=== PATIENT | male | born 1940 | race Caucasian/White ===

== ENCOUNTER 2017-11-19 10:49 | Inpatient (IN) | payer MEDICARE ==
[2017-11-19] VITALS (7 sets, daily range): BP systolic 111–196; BP diastolic 48–85
[~2017-11-19] VITALS: Ht 162.6 cm; Wt 67.7 kg
[2017-11-19] MEDS ORDERED: ondansetron/PF 4mg/2ml inj IV ONE (10:55)
[2017-11-19] MEDS ORDERED: normal saline 1000ML IV soln IVB ONE (10:55)
[2017-11-19] MEDS ORDERED: morphine 4 MG/ML inj SYRINge IV ONE ×3 (11:10→11:55)
[2017-11-19 11:26] LABS: BASOPHILS % (AUTO) 0.6 % (0-1); EOSINOPHILS # (AUTO) 0.1 X10'3 (0-0.9); EOSINOPHILS % (AUTO) 1.9 % (0-6); HEMATOCRIT 43.9 % (42.0-52.0); HEMOGLOBIN 14.9 g/dl (14.0-17.9); LYMPHOCYTES # (AUTO) 1.3 X10'3 (1.1-4.8); LYMPHOCYTES % (AUTO) 25.3 % (21-51); MEAN CORPUSCULAR HEMOGLOBIN 31.5 PG (27.0-31.0); MEAN CORPUSCULAR HGB CONC 33.8 % (33.0-36.5); MEAN CORPUSCULAR VOLUME 93.1 FL (78-98); MEAN PLATELET VOLUME 7.7 FL (7.4-10.4); MONOCYTES # (AUTO) 0.5 X10'3 (0-0.9); MONOCYTES % (AUTO) 10.1 % (2-12); NEUTROPHILS # (AUTO) 3.2 X10'3 (1.8-7.7); NEUTROPHILS % (AUTO) 62.1 % (42-75); PLATELET COUNT 271 X10'3 (140-440); RED BLOOD COUNT 4.72 X10'6 (4.70-6.10); RED CELL DISTRIBUTION WIDTH 13.4 % (11.5-14.5); WHITE BLOOD COUNT 5.2 X10'3 (4.5-11.0)
--- NOTE | 2017-11-19 11:30 | NUR ---
Patient states that he does not have to urinate at this time.
[2017-11-19 11:39] LABS: ALANINE AMINOTRANSFERASE 39 U/L (12-78); ALBUMIN 3.9 G/DL (3.4-5.0); ALBUMIN/GLOBULIN RATIO 1.3 (1.1-1.5); ALKALINE PHOSPHATASE 61 IU/L (46-116); ANION GAP 9 (8-16); ASPARTATE AMINO TRANSFERASE 24 U/L (10-37); BILIRUBIN,TOTAL 0.6 MG/DL (0.1-1.0); BLOOD UREA NITROGEN 23 MG/DL (7-18); CALCIUM 9.1 MG/DL (8.5-10.1); CHLORIDE 95 MMOL/L (99-107); GLUCOSE 177 MG/DL (70-104); LIPASE 265 U/L (73-393); POTASSIUM 3.6 MMOL/L (3.5-5.1); SODIUM 135 MMOL/L (135-145); TOTAL CARBON DIOXIDE 31.4 MMOL/L (24-32); TOTAL PROTEIN 6.9 G/DL (6.4-8.2); eGFR 72 ML/MIN
--- NOTE | 2017-11-19 11:48 | NUR ---
Patient states that he still does not have to urinate at this time.
[2017-11-19] MEDS ORDERED: iohexol 350MG/ML 100ml bottle IV ONE (12:02)
--- NOTE | 2017-11-19 12:05 | NUR ---
PATIENT LEAVING FOR CT AT THIS TIME.
--- NOTE | 2017-11-19 12:27 | NUR ---
BACK FROM CT SCAN
[2017-11-19 12:54] LABS: CLARITY,URINE SLIGHTLY CLOUDY (Clear); COLOR,URINE STRAW (Yellow); GLUCOSE, URINE NEGATIVE (Neg); KETONES,URINE 15 mg/dl (Neg); LEUKOCYTE ESTERASE ,URINE NEGATIVE (Neg); NITRITES, URINE NEGATIVE (Neg); OCCULT BLOOD,URINE NEGATIVE (Neg); PROTEIN,URINE NEGATIVE (Neg); UROBILINOGEN,URINE 0.2 E.U/dL (0.2-1.0)
[2017-11-19] MEDS ORDERED: heparin 25,000 UNIT/250ml bag 250 ML IV SCH ×3 (12:55→14:32)
[2017-11-19] MEDS ORDERED: heparin 10,000 units/1 ML INJ IV ONE (12:55)
[2017-11-19] MEDS ORDERED: heparin 10,000 units/1 ML INJ IV PRN ×2 (13:05→14:20)
[2017-11-19 13:06] LABS: UA COLLECTION TYPE URINAL
[2017-11-19 13:07] LABS: AMORPHOUS PHOSPHATES 3+; BACTERIA,URINE NONE SEEN /HPF (Neg); MUCUS STRANDS NONE SEEN /LPF (Neg); RBC,URINE 0-2 /HPF (0-2); SQUAMOUS EPITHELIAL CELL,UR NONE SEEN /LPF (FEW); WBC,URINE 0-4 /HPF (0-4)
[2017-11-19 13:17] LABS: PARTIAL THROMBOPLASTIN TIME 25 SECONDS (22-32); PROTHROMBIN TIME 10.8 SECONDS (9.0-12.0)
--- NOTE | 2017-11-19 14:14 | NUR ---
Patient having vascular study done at this time
[2017-11-19] MEDS ORDERED: ondansetron/PF 4mg/2ml inj IV PRN (14:20)
[2017-11-19] MEDS ORDERED: dextrose ORAL solution 15 GM/59 ML bottle PO PRN ×2 (14:20)
[2017-11-19] MEDS ORDERED: morphine 2 MG/ML inj. syringe IV PRN ×2 (14:20→20:35)
[2017-11-19] MEDS ORDERED: potassium Cl 20 mEq SR tablet PO PRN (14:20)
[2017-11-19] MEDS ORDERED: insulin Lispro (HumaLOG) vial - multi-dose SQ SCH (14:20)
[2017-11-19] MEDS ORDERED: MESSAGE TO PHARMACY PO ONE (14:20)
[2017-11-19] MEDS ORDERED: dextrose 50%-water 50ml dispensing syringe IV PRN ×2 (14:20)
[2017-11-19] MEDS ORDERED: glucagon, human recombinant 1mg kit SUBCUT PRN (14:20)
[2017-11-19] MEDS ORDERED: acetaminophen 325mg tablet PO PRN ×2 (14:20)
[2017-11-19] MEDS ORDERED: potassium Cl 40MEQ/NS 500ml 500 ML IV PRN ×2 (14:20)
[2017-11-19] MEDS ORDERED: magnesium hydroxide 30ml (MOM) UD suspension PO PRN (14:20)
[2017-11-19 14:50] LABS: HEMOGLOBIN A1C 5.3 % (4.5-6.2)
--- NOTE | 2017-11-19 15:00 | NUR ---
Patient in room CICU 2009. I have received report from Candice and had the opportunity to ask questions and assume patient care.
[2017-11-19] MEDS ORDERED: LISI40TA4 PO (15:12)
[2017-11-19] MEDS ORDERED: CHLO25TA10 PO (15:12)
[2017-11-19] MEDS ORDERED: METF-950 PO (15:14)
[2017-11-19] MEDS ORDERED: ATOR-2 PO (15:14)
[2017-11-19] MEDS ORDERED: AMLO10TA13 PO (15:14)
[2017-11-19] MEDS ORDERED: ATEN25TA2 PO (15:14)
[2017-11-19] MEDS ORDERED: OMEG-15 PO (15:22)
[2017-11-19] MEDS ORDERED: UBID100C16 PO (15:22)
[2017-11-19] MEDS ORDERED: VITA1TAB57 PO (15:22)
[2017-11-19] MEDS ORDERED: CHOL100046 PO (15:22)
[2017-11-19] MEDS ORDERED: MULT-933 PO (15:22)
[2017-11-19] MEDS ORDERED: ASPI-611 PO (15:22)
[2017-11-19] MEDS ORDERED: MELA5TAB12 PO (15:25)
[2017-11-19] MEDS ORDERED: amLODIPine 5mg tablet PO ONE (15:55)
[2017-11-19] MEDS ORDERED: vitamin D (cholecalciferol) 1,000 unit tablet PO ONE (15:55)
[2017-11-19] MEDS ORDERED: atenolol 25mg tablet PO ONE (15:55)
[2017-11-19] MEDS ORDERED: lisinopril 20mg tablet PO ONE (15:55)
[2017-11-19] MEDS ORDERED: famotidine 20mg tablet PO ONE (15:55)
[2017-11-19] MEDS ORDERED: aspirin 81mg tab.chew PO ONE (15:55)
[2017-11-19] MEDS ORDERED: chlorthalidone 25mg tablet PO ONE (15:55)
[2017-11-19] MEDS: morphine 4 MG/ML inj SYRINge IV PRN ×4 (16:10→23:21)
[2017-11-19] MEDS: vitamin B comp w/Vit. C tab 1 TAB TABLET PO SCH (16:16)
[2017-11-19] MEDS: heparin 25,000 UNIT/250ml bag 250 ML IV SCH ×2 (16:16→23:17)
[2017-11-19] MEDS: vitamin D (cholecalciferol) 1,000 unit tablet PO SCH (16:20)
--- NOTE | 2017-11-19 19:08 | NUR ---
1515- Pt arrived from ER via zeinab S.O at bedside. A/O able to transfer to bed with standby. VS stable, BP elevated at196/83. Pt has not received AM meds today. Dr Ramos here completing admission. Pain in abdomen controlled at this time. Pt describes pain at lower abdomen wraps around, "axis to axis", sharp continuous. Admission completed as charted.
[2017-11-19] MEDS ORDERED: non-formulary drug (Ubidecarenone (Coq-10) 100 MG) PO SCH (20:00)
[2017-11-19] MEDS: atorvastatin 20mg tablet PO SCH (20:40)
[2017-11-19] MEDS: HYDROcodone/acetaminophen 5mg/325mg tablet PO PRN (20:41)
[2017-11-19] MEDS: famotidine 20mg tablet PO SCH (20:41)
[2017-11-19] MEDS: insulin glargine (Lantus) pen - multi-dose SQ SCH (20:42)
[2017-11-19] MEDS: lisinopril 20mg tablet PO SCH (20:42)
[2017-11-19] MEDS ORDERED: FISH OIL PO SCH (21:00)
[2017-11-19] MEDS ORDERED: DHA PO SCH (21:00)
[2017-11-19] MEDS ORDERED: OMEGA PO SCH (21:00)
[2017-11-19] MEDS ORDERED: EPA PO SCH (21:00)
[2017-11-20] VITALS (21 sets, daily range): BP systolic 131–181; BP diastolic 63–90
[2017-11-20] MEDS: HYDROcodone/acetaminophen 5mg/325mg tablet PO PRN (02:14)
[2017-11-20 04:49] LABS: BASOPHILS % (AUTO) 0.2 % (0-1); EOSINOPHILS # (AUTO) 0.1 X10'3 (0-0.9); EOSINOPHILS % (AUTO) 0.9 % (0-6); HEMATOCRIT 38.2 % (42.0-52.0); HEMOGLOBIN 12.8 g/dl (14.0-17.9); LYMPHOCYTES # (AUTO) 0.9 X10'3 (1.1-4.8); LYMPHOCYTES % (AUTO) 13.3 % (21-51); MEAN CORPUSCULAR HEMOGLOBIN 31.2 PG (27.0-31.0); MEAN CORPUSCULAR HGB CONC 33.5 % (33.0-36.5); MEAN CORPUSCULAR VOLUME 93.3 FL (78-98); MEAN PLATELET VOLUME 7.9 FL (7.4-10.4); MONOCYTES # (AUTO) 0.6 X10'3 (0-0.9); MONOCYTES % (AUTO) 8.7 % (2-12); NEUTROPHILS # (AUTO) 5.1 X10'3 (1.8-7.7); NEUTROPHILS % (AUTO) 76.9 % (42-75); PLATELET COUNT 216 X10'3 (140-440); RED CELL DISTRIBUTION WIDTH 13.6 % (11.5-14.5); WHITE BLOOD COUNT 6.6 X10'3 (4.5-11.0)
[2017-11-20 05:13] LABS: ALANINE AMINOTRANSFERASE 28 U/L (12-78); ALBUMIN 3.1 G/DL (3.4-5.0); ALBUMIN/GLOBULIN RATIO 1.1 (1.1-1.5); ALKALINE PHOSPHATASE 47 IU/L (46-116); ANION GAP 5 (8-16); ASPARTATE AMINO TRANSFERASE 16 U/L (10-37); BILIRUBIN,TOTAL 0.4 MG/DL (0.1-1.0); BLOOD UREA NITROGEN 15 MG/DL (7-18); BUN/CREATININE RATIO 16.3 (5.4-32.0); CALCIUM 8.7 MG/DL (8.5-10.1); CHLORIDE 99 MMOL/L (99-107); CREATININE 0.92 MG/DL (0.60-1.10); GLUCOSE 136 MG/DL (70-104); MAGNESIUM 1.5 MG/DL (1.5-2.4); PHOSPHORUS 4.9 MG/DL (2.3-4.5); POTASSIUM 3.5 MMOL/L (3.5-5.1); SODIUM 134 MMOL/L (135-145); TOTAL CARBON DIOXIDE 30.2 MMOL/L (24-32); TOTAL PROTEIN 5.8 G/DL (6.4-8.2); eGFR 80 ML/MIN
--- NOTE | 2017-11-20 06:30 | NUR ---
Patient in room CICU 2008. I have received report from frank mcrae and had the opportunity to ask questions and assume patient care.
[2017-11-20] MEDS: morphine 4 MG/ML inj SYRINge IV PRN (07:06)
[2017-11-20] MEDS: K and/or MAG REPLACEMENT MC SCH (08:00)
[2017-11-20] MEDS: aspirin 81mg tab.chew PO SCH (08:33)
[2017-11-20] MEDS: chlorthalidone 25mg tablet PO SCH (08:34)
[2017-11-20] MEDS: amLODIPine 5mg tablet PO SCH (08:35)
[2017-11-20] MEDS: famotidine 20mg tablet PO SCH (08:37)
[2017-11-20] MEDS: atenolol 25mg tablet PO SCH (08:37)
[2017-11-20] MEDS: multivitamins, therapeutics tablet PO SCH (08:37)
[2017-11-20] MEDS: vitamin D (cholecalciferol) 1,000 unit tablet PO SCH (08:38)
[2017-11-20] MEDS: lisinopril 20mg tablet PO SCH ×2 (08:39→21:21)
[2017-11-20] MEDS ORDERED: dicyclomine 10 MG capsule PO PRN (17:55)
--- NOTE | 2017-11-20 18:22 | NUR ---
Problems reprioritized. Patient report given, questions answered & plan of care reviewed with ALEK MOSLEY..
--- NOTE | 2017-11-20 18:39 | NUR ---
I have received report and assumed care of pt, pt resting in bed, rise and fall of chest cavity equile and symmetrical, pt eating dinner without difficulties orders in place to transfer pt to [facility] without tele.
--- NOTE | 2017-11-20 19:41 | NUR ---
report called to receiving rn care of plan reviewed, pt and belongings transferred to [facility] via wheel chair.
--- NOTE | 2017-11-20 20:10 | NUR ---
I have received report from MELANY IN CICU and had the opportunity to ask questions and assume patient care. Two RN Skin Assessment has been completed at 2009 with CRISTY RN,all skin assessed,with the following findingS: NO SKIN ISSUES
[2017-11-20] MEDS: insulin glargine (Lantus) pen - multi-dose SQ SCH (21:00)
[2017-11-20] MEDS: amitriptyline 10mg tablet PO SCH (21:00)
[2017-11-20] MEDS: atorvastatin 20mg tablet PO SCH (21:21)
--- NOTE | 2017-11-20 22:00 | NUR ---
PT REFUSING TO HAVE IV IN PLACE. EXPLAINED TO PT THAT IV IS IN PLACE A SAFETY PRECAUTION, PT CONTINUES TO REFUSE IV. IV DC'D WITH CANNULA INTACT.
[2017-11-21] VITALS: BP 171/69
[2017-11-21 05:24] LABS: BASOPHILS % (AUTO) 0.4 % (0-1); EOSINOPHILS # (AUTO) 0.1 X10'3 (0-0.9); HEMATOCRIT 39.3 % (42.0-52.0); HEMOGLOBIN 13.2 g/dl (14.0-17.9); LYMPHOCYTES % (AUTO) 16.5 % (21-51); MEAN CORPUSCULAR HEMOGLOBIN 31.2 PG (27.0-31.0); MEAN CORPUSCULAR HGB CONC 33.6 % (33.0-36.5); MEAN PLATELET VOLUME 7.9 FL (7.4-10.4); MONOCYTES # (AUTO) 0.6 X10'3 (0-0.9); MONOCYTES % (AUTO) 10.8 % (2-12); NEUTROPHILS # (AUTO) 4.1 X10'3 (1.8-7.7); NEUTROPHILS % (AUTO) 70.3 % (42-75); PLATELET COUNT 213 X10'3 (140-440); RED BLOOD COUNT 4.23 X10'6 (4.70-6.10); RED CELL DISTRIBUTION WIDTH 13.4 % (11.5-14.5); WHITE BLOOD COUNT 5.9 X10'3 (4.5-11.0)
[2017-11-21 05:55] LABS: ALANINE AMINOTRANSFERASE 28 U/L (12-78); ALBUMIN 3.3 G/DL (3.4-5.0); ALBUMIN/GLOBULIN RATIO 1.2 (1.1-1.5); ALKALINE PHOSPHATASE 49 IU/L (46-116); ANION GAP 5 (8-16); ASPARTATE AMINO TRANSFERASE 17 U/L (10-37); BILIRUBIN,TOTAL 0.4 MG/DL (0.1-1.0); BLOOD UREA NITROGEN 15 MG/DL (7-18); BUN/CREATININE RATIO 14.2 (5.4-32.0); CALCIUM 8.6 MG/DL (8.5-10.1); CHLORIDE 101 MMOL/L (99-107); CREATININE 1.06 MG/DL (0.60-1.10); GLUCOSE 127 MG/DL (70-104); MAGNESIUM 1.6 MG/DL (1.5-2.4); PHOSPHORUS 3.9 MG/DL (2.3-4.5); POTASSIUM 3.4 MMOL/L (3.5-5.1); SODIUM 139 MMOL/L (135-145); TOTAL PROTEIN 6.1 G/DL (6.4-8.2); eGFR 68 ML/MIN
--- NOTE | 2017-11-21 06:37 | NUR ---
Problems reprioritized. Patient report given, questions answered & plan of care reviewed with COLTON.
--- NOTE | 2017-11-21 06:40 | NUR ---
Patient in room [facility] 354. I have received report from ALEK Coles and had the opportunity to ask questions and assume patient care.
[2017-11-21 07:18] VITALS: BP 111/64
[2017-11-21] MEDS: multivitamins, therapeutics tablet PO SCH (07:46)
[2017-11-21] MEDS: lisinopril 20mg tablet PO SCH ×2 (07:46→21:01)
[2017-11-21] MEDS: aspirin 81mg tab.chew PO SCH (07:46)
[2017-11-21] MEDS: amLODIPine 5mg tablet PO SCH (07:46)
[2017-11-21] MEDS: vitamin B comp w/Vit. C tab 1 TAB TABLET PO SCH (07:46)
[2017-11-21] MEDS: vitamin D (cholecalciferol) 1,000 unit tablet PO SCH (07:46)
[2017-11-21] MEDS: chlorthalidone 25mg tablet PO SCH (07:47)
[2017-11-21] MEDS: atenolol 25mg tablet PO SCH (07:47)
[2017-11-21] MEDS: K and/or MAG REPLACEMENT MC SCH (08:00)
[2017-11-21 11:37] VITALS: BP 114/64
[2017-11-21] MEDS: potassium Cl 20 mEq SR tablet PO PRN ×3 (14:00→21:55)
--- NOTE | 2017-11-21 18:20 | NUR ---
Patient in room [facility] 354. I have received report from Yasmin GASTON and had the opportunity to ask questions and assume patient care.
--- NOTE | 2017-11-21 19:16 | NUR ---
Patient in room [facility] 354. I have received report from Yasmin GASTON and had the opportunity to ask questions and assume patient care.
[2017-11-21 20:00] VITALS: BP 144/68
[2017-11-21] MEDS: atorvastatin 20mg tablet PO SCH (21:00)
[2017-11-21] MEDS: insulin glargine (Lantus) pen - multi-dose SQ SCH (21:00)
[2017-11-21] MEDS: amitriptyline 10mg tablet PO SCH (21:00)
[2017-11-21 23:51] VITALS: BP 144/75
[2017-11-22 05:53] LABS: BASOPHILS % (AUTO) 0.3 % (0-1); EOSINOPHILS # (AUTO) 0.2 X10'3 (0-0.9); HEMATOCRIT 41.5 % (42.0-52.0); HEMOGLOBIN 14.2 g/dl (14.0-17.9); LYMPHOCYTES # (AUTO) 1.2 X10'3 (1.1-4.8); LYMPHOCYTES % (AUTO) 22.7 % (21-51); MEAN CORPUSCULAR HEMOGLOBIN 31.7 PG (27.0-31.0); MEAN CORPUSCULAR HGB CONC 34.1 % (33.0-36.5); MEAN CORPUSCULAR VOLUME 92.8 FL (78-98); MEAN PLATELET VOLUME 7.7 FL (7.4-10.4); MONOCYTES # (AUTO) 0.5 X10'3 (0-0.9); MONOCYTES % (AUTO) 9.4 % (2-12); NEUTROPHILS # (AUTO) 3.5 X10'3 (1.8-7.7); NEUTROPHILS % (AUTO) 64.6 % (42-75); PLATELET COUNT 220 X10'3 (140-440); RED BLOOD COUNT 4.47 X10'6 (4.70-6.10); RED CELL DISTRIBUTION WIDTH 13.3 % (11.5-14.5); WHITE BLOOD COUNT 5.4 X10'3 (4.5-11.0)
[2017-11-22 06:14] LABS: ALANINE AMINOTRANSFERASE 31 U/L (12-78); ALBUMIN 3.3 G/DL (3.4-5.0); ALBUMIN/GLOBULIN RATIO 1.1 (1.1-1.5); ALKALINE PHOSPHATASE 53 IU/L (46-116); ANION GAP 7 (8-16); ASPARTATE AMINO TRANSFERASE 17 U/L (10-37); BILIRUBIN,TOTAL 0.6 MG/DL (0.1-1.0); BLOOD UREA NITROGEN 17 MG/DL (7-18); BUN/CREATININE RATIO 19.3 (5.4-32.0); CALCIUM 8.6 MG/DL (8.5-10.1); CHLORIDE 100 MMOL/L (99-107); CREATININE 0.88 MG/DL (0.60-1.10); GLUCOSE 115 MG/DL (70-104); MAGNESIUM 1.7 MG/DL (1.5-2.4); PHOSPHORUS 3.3 MG/DL (2.3-4.5); POTASSIUM 3.9 MMOL/L (3.5-5.1); SODIUM 136 MMOL/L (135-145); TOTAL PROTEIN 6.4 G/DL (6.4-8.2); eGFR 84 ML/MIN
--- NOTE | 2017-11-22 06:22 | NUR ---
Problems reprioritized. Patient report given, questions answered & plan of care reviewed with Yasmin GASTON with Ellie GASTON.
--- NOTE | 2017-11-22 06:27 | NUR ---
Patient in room [facility] 354. I have received report from ALEK Mohamud and jasson Argueta RN and had the opportunity to ask questions and assume patient care.
--- NOTE | 2017-11-22 06:30 | NUR ---
Problems reprioritized. Patient report given, questions answered & plan of care reviewed with Yasmin GASTON. Pt sleeping soundly with no signs of distress.
[2017-11-22 07:45] VITALS: BP 130/68
[2017-11-22] MEDS: chlorthalidone 25mg tablet PO SCH (07:56)
[2017-11-22] MEDS: atenolol 25mg tablet PO SCH (07:56)
[2017-11-22] MEDS: vitamin D (cholecalciferol) 1,000 unit tablet PO SCH (07:56)
[2017-11-22] MEDS: vitamin B comp w/Vit. C tab 1 TAB TABLET PO SCH (07:56)
[2017-11-22] MEDS: amLODIPine 5mg tablet PO SCH (07:56)
[2017-11-22] MEDS: aspirin 81mg tab.chew PO SCH (07:56)
[2017-11-22] MEDS: multivitamins, therapeutics tablet PO SCH (07:56)
[2017-11-22] MEDS: lisinopril 20mg tablet PO SCH (07:56)
[2017-11-22] MEDS: K and/or MAG REPLACEMENT MC SCH (08:00)
[2017-11-22 11:00] VITALS: BP 134/73
--- NOTE | 2017-11-22 15:00 | NUR ---
Pt discharged to home with all belongings in private vehicle, accompanied by girlfriend. Discharge instructions reviewed, mediations reviewed, no IV to DC. Pt escorted to front lobby by PCT.
== END 2017-11-22 14:30 | disposition home or self-care (01) | DRG 394 ==
LOC: ER 10:50 → ED HOLD 14:20 → CICU 2S 15:03 → SUR 3N 11-20 20:03
PROVIDERS: ADMIT Internal Medicine Critical Care Medicine; ATTEND Internal Medicine Critical Care Medicine
PROC: B4201ZZ Computerized Tomography (CT Scan) of Abdominal Aorta using Low Osmolar Contrast (ICD-10-PCS; principal; 2017-11-19)
PROC: B4241ZZ Computerized Tomography (CT Scan) of Superior Mesenteric Artery using Low Osmolar Contrast (ICD-10-PCS; 2017-11-19)
PROC: B3201ZZ Computerized Tomography (CT Scan) of Thoracic Aorta using Low Osmolar Contrast (ICD-10-PCS; 2017-11-19)
DX: K55.059 Acute (reversible) ischemia of intestine, part and extent unspecified (principal); E87.2 Acidosis; K55.1 Chronic vascular disorders of intestine; I25.10 Atherosclerotic heart disease of native coronary artery without angina pectoris; I10 Essential (primary) hypertension; R73.03 Prediabetes; Z95.1 Presence of aortocoronary bypass graft; Z88.0 Allergy status to penicillin; Z87.891 Personal history of nicotine dependence
CPT/HCPCS: 36415; 71275; 74175; 80053; 81001; 82948; 83036; 83605; 83690; 83735; 84100; 84145; 85025; 85610; 85730; 86885; 86900; 86901; 87070; 93005; 93306; 93975; 96365; 96375; 96376; 99291; G0378; J1644; J1815; J2270; J2405; Q9967

== ENCOUNTER 2017-11-24 13:00 | Observation (INO) | payer MEDICARE ==
[~2017-11-24] VITALS: Ht 162.6 cm; Wt 66.8 kg
[~2017-11-24 13:00] MED LIST: AMLO10TA13 PO; ASPI-611 PO; ATEN25TA2 PO; ATOR-2 PO; CHLO25TA10 PO; CHOL100046 PO; LISI40TA4 PO; MELA5TAB12 PO; METF-950 PO; MULT-933 PO; OMEG-15 PO; UBID100C16 PO; VITA1TAB57 PO
[2017-11-24 13:50] LABS: BASOPHILS % (AUTO) 0.2 % (0-1); EOSINOPHILS # (AUTO) 0.1 X10'3 (0-0.9); EOSINOPHILS % (AUTO) 1.3 % (0-6); HEMATOCRIT 40.4 % (42.0-52.0); HEMOGLOBIN 13.7 g/dl (14.0-17.9); LYMPHOCYTES # (AUTO) 0.8 X10'3 (1.1-4.8); LYMPHOCYTES % (AUTO) 17.5 % (21-51); MEAN CORPUSCULAR HEMOGLOBIN 31.6 PG (27.0-31.0); MEAN CORPUSCULAR HGB CONC 33.9 % (33.0-36.5); MEAN CORPUSCULAR VOLUME 93.3 FL (78-98); MEAN PLATELET VOLUME 7.9 FL (7.4-10.4); MONOCYTES # (AUTO) 0.5 X10'3 (0-0.9); MONOCYTES % (AUTO) 11.2 % (2-12); NEUTROPHILS # (AUTO) 3.3 X10'3 (1.8-7.7); NEUTROPHILS % (AUTO) 69.8 % (42-75); PLATELET COUNT 257 X10'3 (140-440); RED BLOOD COUNT 4.34 X10'6 (4.70-6.10); RED CELL DISTRIBUTION WIDTH 13.5 % (11.5-14.5); WHITE BLOOD COUNT 4.8 X10'3 (4.5-11.0)
[2017-11-24 14:07] LABS: ALANINE AMINOTRANSFERASE 42 U/L (12-78); ALBUMIN 3.6 G/DL (3.4-5.0); ALBUMIN/GLOBULIN RATIO 1.2 (1.1-1.5); ALKALINE PHOSPHATASE 57 IU/L (46-116); ANION GAP 6 (8-16); ASPARTATE AMINO TRANSFERASE 21 U/L (10-37); BILIRUBIN,TOTAL 0.5 MG/DL (0.1-1.0); BLOOD UREA NITROGEN 36 MG/DL (7-18); CALCIUM 8.7 MG/DL (8.5-10.1); CHLORIDE 98 MMOL/L (99-107); CREATININE 1.03 MG/DL (0.60-1.10); GLUCOSE 137 MG/DL (70-104); POTASSIUM 3.9 MMOL/L (3.5-5.1); SODIUM 134 MMOL/L (135-145); TOTAL CARBON DIOXIDE 30.1 MMOL/L (24-32); TOTAL PROTEIN 6.7 G/DL (6.4-8.2); eGFR 70 ML/MIN
[2017-11-24 14:23] LABS: PARTIAL THROMBOPLASTIN TIME 26 SECONDS (22-32); PROTHROMBIN TIME 10.3 SECONDS (9.0-12.0)
[2017-11-24] MEDS ORDERED: insulin Lispro (HumaLOG) vial - multi-dose SQ SCH (15:15)
[2017-11-24] MEDS ORDERED: dextrose 50%-water 50ml dispensing syringe IV PRN ×2 (15:15)
[2017-11-24] MEDS ORDERED: ondansetron/PF 4mg/2ml inj IV PRN (15:15)
[2017-11-24] MEDS ORDERED: acetaminophen 325mg tablet PO PRN (15:15)
[2017-11-24] MEDS ORDERED: magnesium hydroxide 30ml (MOM) UD suspension PO PRN (15:15)
[2017-11-24] MEDS ORDERED: morphine 2 MG/ML inj. syringe IV PRN (15:15)
[2017-11-24] MEDS ORDERED: MESSAGE TO PHARMACY PO ONE (15:15)
[2017-11-24] MEDS ORDERED: dextrose ORAL solution 15 GM/59 ML bottle PO PRN ×2 (15:15)
[2017-11-24] MEDS ORDERED: glucagon, human recombinant 1mg kit SUBCUT PRN (15:15)
[2017-11-24] MEDS ORDERED: mag hydrox/Alum hydrox/simeth 30ml oral suspension PO PRN (15:15)
[2017-11-24] MEDS ORDERED: HYDROcodone/acetaminophen 5mg/325mg tablet PO PRN (15:15)
[2017-11-24] MEDS ORDERED: metoprolol tartrate 1mg/ml inj IV PRN (15:25)
[2017-11-24] MEDS ORDERED: nitroGLYCERIN 0.4mg SUBLingual tab SL PRN (15:25)
[2017-11-24] MEDS ORDERED: regadenoson 0.4mg/5ml syringe IV PRN (15:25)
[2017-11-24] MEDS ORDERED: aminophylline 250mg/10ml inj. IV PRN (15:25)
[2017-11-24] MEDS ORDERED: aspirin 325mg tablet PO ONE (15:35)
[2017-11-24] MEDS ORDERED: TUMERIC PO (17:58)
[2017-11-24] MEDS ORDERED: MAGN400C PO (17:58)
[2017-11-24] MEDS ORDERED: Potassium Citrate PO (17:58)
[2017-11-24] MEDS ORDERED: VALE530C PO (17:58)
[2017-11-24] MEDS ORDERED: FLAX100015 PO (17:59)
[2017-11-24 18:08] LABS: HEMOGLOBIN A1C 5.7 % (4.5-6.2)
[2017-11-24] MEDS: metFORMIN 500mg tablet PO SCH (20:00)
[2017-11-24] MEDS ORDERED: non-formulary drug (Ubidecarenone (Coq-10) 100 MG) PO SCH (20:00)
[2017-11-24] MEDS ORDERED: POTASSIUM CITRATE PO SCH (20:00)
[2017-11-24] MEDS ORDERED: non-formulary drug ([Tumeric] 1 TAB) PO SCH (20:00)
[2017-11-24] MEDS ORDERED: OMEGA PO SCH (21:00)
[2017-11-24] MEDS ORDERED: VALERIAN ROOT PO SCH (21:00)
[2017-11-24] MEDS ORDERED: insulin glargine (Lantus) pen - multi-dose SQ SCH (21:00)
[2017-11-24] MEDS ORDERED: EPA PO SCH (21:00)
[2017-11-24] MEDS ORDERED: DHA PO SCH (21:00)
[2017-11-24] MEDS ORDERED: Melatonin 3mg tablet PO SCH (21:00)
[2017-11-24] MEDS ORDERED: FISH OIL PO SCH (21:00)
[2017-11-24 21:50] VITALS: BP 146/66
[2017-11-25] VITALS (18 sets, daily range): BP systolic 101–161; BP diastolic 56–71
[2017-11-25 01:12] LABS: ALANINE AMINOTRANSFERASE 36 U/L (12-78); ALBUMIN 3.2 G/DL (3.4-5.0); ALBUMIN/GLOBULIN RATIO 1.1 (1.1-1.5); ALKALINE PHOSPHATASE 54 IU/L (46-116); ANION GAP 7 (8-16); ASPARTATE AMINO TRANSFERASE 16 U/L (10-37); BILIRUBIN,TOTAL 0.3 MG/DL (0.1-1.0); BLOOD UREA NITROGEN 31 MG/DL (7-18); BUN/CREATININE RATIO 25.8 (5.4-32.0); CALCIUM 8.6 MG/DL (8.5-10.1); CHLORIDE 101 MMOL/L (99-107); GLUCOSE 141 MG/DL (70-104); POTASSIUM 3.4 MMOL/L (3.5-5.1); SODIUM 138 MMOL/L (135-145); TOTAL PROTEIN 6.1 G/DL (6.4-8.2); eGFR 59 ML/MIN
[2017-11-25 01:19] LABS: BASOPHILS % (AUTO) 0.5 % (0-1); EOSINOPHILS # (AUTO) 0.1 X10'3 (0-0.9); EOSINOPHILS % (AUTO) 3.4 % (0-6); HEMOGLOBIN 13.3 g/dl (14.0-17.9); LYMPHOCYTES # (AUTO) 1.1 X10'3 (1.1-4.8); LYMPHOCYTES % (AUTO) 24.3 % (21-51); MEAN CORPUSCULAR HEMOGLOBIN 31.5 PG (27.0-31.0); MEAN CORPUSCULAR HGB CONC 34.2 % (33.0-36.5); MEAN CORPUSCULAR VOLUME 92.1 FL (78-98); MONOCYTES # (AUTO) 0.5 X10'3 (0-0.9); MONOCYTES % (AUTO) 11.8 % (2-12); NEUTROPHILS # (AUTO) 2.6 X10'3 (1.8-7.7); PLATELET COUNT 233 X10'3 (140-440); RED BLOOD COUNT 4.23 X10'6 (4.70-6.10); RED CELL DISTRIBUTION WIDTH 13.4 % (11.5-14.5); WHITE BLOOD COUNT 4.3 X10'3 (4.5-11.0)
[2017-11-25] MEDS ORDERED: lisinopril 20mg tablet PO SCH (08:00)
[2017-11-25] MEDS ORDERED: amLODIPine 5mg tablet PO SCH (08:00)
[2017-11-25] MEDS ORDERED: aspirin 81mg tablet.DR PO SCH (08:00)
[2017-11-25] MEDS ORDERED: chlorthalidone 25mg tablet PO SCH (08:00)
[2017-11-25] MEDS ORDERED: magnesium oxide 400mg tablet PO SCH (08:00)
[2017-11-25] MEDS ORDERED: FLAXSEED OIL 1400 MG PO SCH (08:00)
[2017-11-25] MEDS ORDERED: vitamin B comp w/Vit. C tab 1 TAB TABLET PO SCH (08:00)
[2017-11-25] MEDS ORDERED: enoxaparin 40mg/0.4ml syringe SUBCUT SCH (08:00)
[2017-11-25] MEDS ORDERED: vitamin D (cholecalciferol) 1,000 unit tablet PO SCH (08:00)
[2017-11-25] MEDS ORDERED: atorvastatin 20mg tablet PO SCH (08:00)
[2017-11-25] MEDS ORDERED: multivitamins, therapeutics tablet PO SCH (08:00)
[2017-11-25] MEDS: metFORMIN 500mg tablet PO SCH (08:00)
[2017-11-25] MEDS ORDERED: atenolol 25mg tablet PO SCH (08:00)
[2017-11-25] MEDS ORDERED: potassium Cl 20 mEq SR tablet PO ONE (09:50)
[2017-11-25] MEDS ORDERED: aminophylline inj. 10 ML IV ONE (12:36)
[2017-11-25] MEDS ORDERED: regadenoson 0.4mg/5ml syringe IV ONE (12:36)
== END 2017-11-25 15:45 | disposition home or self-care (01) ==
LOC: ER 13:00 → ED HOLD 15:14 → SUR 3N 21:35
PROVIDERS: ADMIT Internal Medicine; ATTEND Internal Medicine
DX: R07.89 Other chest pain (principal); I25.10 Atherosclerotic heart disease of native coronary artery without angina pectoris; I10 Essential (primary) hypertension; E11.9 Type 2 diabetes mellitus without complications; Z95.1 Presence of aortocoronary bypass graft
CPT/HCPCS: 36415; 71045; 78452; 80053; 82948; 83036; 84484; 85025; 85610; 85730; 93005; 93017; 96372; 96374; 99285; A9500; G0378; J0280; J1650; J1815

== ENCOUNTER 2017-12-13 00:57 | Inpatient (IN) | payer MEDICARE ==
[2017-12-13] VITALS (16 sets, daily range): BP systolic 99–138; BP diastolic 54–72
[~2017-12-13] VITALS: Ht 162.6 cm; Wt 68.1 kg
[~2017-12-13 00:57] MED LIST changes: +FLAX100015 PO; +MAGN400C PO; +Potassium Citrate PO; +TUMERIC PO; +VALE530C PO
[2017-12-13 01:23] LABS: BASOPHILS % (AUTO) 0.7 % (0-1); EOSINOPHILS # (AUTO) 0.1 X10'3 (0-0.9); EOSINOPHILS % (AUTO) 2.2 % (0-6); HEMATOCRIT 41.1 % (42.0-52.0); HEMOGLOBIN 13.8 g/dl (14.0-17.9); LYMPHOCYTES # (AUTO) 1.2 X10'3 (1.1-4.8); LYMPHOCYTES % (AUTO) 21.4 % (21-51); MEAN CORPUSCULAR HEMOGLOBIN 31.7 PG (27.0-31.0); MEAN CORPUSCULAR HGB CONC 33.6 % (33.0-36.5); MEAN CORPUSCULAR VOLUME 94.3 FL (78-98); MEAN PLATELET VOLUME 8.6 FL (7.4-10.4); MONOCYTES # (AUTO) 0.6 X10'3 (0-0.9); MONOCYTES % (AUTO) 10.1 % (2-12); NEUTROPHILS # (AUTO) 3.6 X10'3 (1.8-7.7); NEUTROPHILS % (AUTO) 65.6 % (42-75); PLATELET COUNT 207 X10'3 (140-440); RED BLOOD COUNT 4.36 X10'6 (4.70-6.10); RED CELL DISTRIBUTION WIDTH 13.4 % (11.5-14.5); WHITE BLOOD COUNT 5.6 X10'3 (4.5-11.0)
[2017-12-13] MEDS ORDERED: aspirin 325mg tablet PO ONE (01:25)
[2017-12-13] MEDS ORDERED: nitroGLYCERIN 0.4mg SUBLingual tab SL PRN (01:25)
[2017-12-13 01:35] LABS: PARTIAL THROMBOPLASTIN TIME 25 SECONDS (22-32); PROTHROMBIN TIME 10.2 SECONDS (9.0-12.0)
[2017-12-13 01:37] LABS: ALANINE AMINOTRANSFERASE 29 U/L (12-78); ALBUMIN 3.6 G/DL (3.4-5.0); ALBUMIN/GLOBULIN RATIO 1.1 (1.1-1.5); ALKALINE PHOSPHATASE 49 IU/L (46-116); ANION GAP 8 (8-16); ASPARTATE AMINO TRANSFERASE 22 U/L (10-37); BILIRUBIN,TOTAL 0.3 MG/DL (0.1-1.0); BLOOD UREA NITROGEN 26 MG/DL (7-18); BUN/CREATININE RATIO 24.8 (5.4-32.0); CALCIUM 9.3 MG/DL (8.5-10.1); CHLORIDE 99 MMOL/L (99-107); CREATININE 1.05 MG/DL (0.60-1.10); GLUCOSE 138 MG/DL (70-104); SODIUM 136 MMOL/L (135-145); TOTAL CARBON DIOXIDE 28.6 MMOL/L (24-32); TOTAL PROTEIN 6.9 G/DL (6.4-8.2); eGFR 68 ML/MIN
[2017-12-13] MEDS ORDERED: heparin 25,000 UNIT/250ml bag 250 ML IV SCH (01:43)
[2017-12-13] MEDS ORDERED: heparin 10,000 units/1 ML INJ IV PRN ×2 (01:45→02:15)
[2017-12-13] MEDS ORDERED: heparin 10,000 units/1 ML INJ IV ONE ×2 (01:45)
[2017-12-13] MEDS ORDERED: nitroGLYCERIN 1gm ointment UD TP ONE (01:50)
[2017-12-13] MEDS ORDERED: morphine 4 MG/ML inj SYRINge IV ONE (01:50)
[2017-12-13] MEDS ORDERED: normal saline 1000ml 1,000 ML IV SCH (02:06)
[2017-12-13] MEDS ORDERED: acetaminophen 325mg tablet PO PRN ×2 (02:10)
[2017-12-13] MEDS ORDERED: metoclopramide 5 mg/ml inj IV PRN (02:10)
[2017-12-13] MEDS ORDERED: morphine 2 MG/ML inj. syringe IV PRN ×2 (02:10)
[2017-12-13] MEDS ORDERED: HYDROmorphone 1 mg/ml syringe IV PRN ×2 (02:10)
[2017-12-13] MEDS ORDERED: diphenhydrAMINE 50 mg/ml inj IV PRN (02:10)
[2017-12-13] MEDS ORDERED: magnesium hydroxide 30ml (MOM) UD suspension PO PRN (02:10)
[2017-12-13] MEDS ORDERED: diphenhydrAMINE 25mg capsule PO PRN (02:10)
[2017-12-13] MEDS ORDERED: mag hydrox/Alum hydrox/simeth 30ml oral suspension PO PRN (02:10)
[2017-12-13] MEDS ORDERED: HYDROcodone/acetaminophen 5mg/325mg tablet PO PRN (02:10)
[2017-12-13] MEDS ORDERED: ondansetron/PF 4mg/2ml inj IV PRN (02:10)
[2017-12-13] MEDS ORDERED: HYDROcodone/acetaminophen 10/325mg tab PO PRN (02:10)
[2017-12-13] MEDS ORDERED: bisacodyl 10mg suppository rectal RC PRN (02:10)
[2017-12-13] MEDS ORDERED: acetaminophen 650mg rectal suppository RC PRN (02:10)
[2017-12-13] MEDS: heparin 25,000 UNIT/250ml bag 250 ML IV SCH ×2 (02:13→16:18)
[2017-12-13] MEDS ORDERED: insulin Lispro (HumaLOG) vial - multi-dose SQ SCH (02:15)
[2017-12-13] MEDS ORDERED: MESSAGE TO PHARMACY PO ONE (02:15)
[2017-12-13] MEDS ORDERED: dextrose ORAL solution 15 GM/59 ML bottle PO PRN ×2 (02:15)
[2017-12-13] MEDS ORDERED: glucagon, human recombinant 1mg kit SUBCUT PRN (02:15)
[2017-12-13] MEDS ORDERED: dextrose 50%-water 50ml dispensing syringe IV PRN ×2 (02:15)
[2017-12-13] MEDS ORDERED: MELO7.5T12 PO (02:33)
[2017-12-13] MEDS ORDERED: ESOM20CA PO (02:33)
[2017-12-13 02:37] LABS: D-DIMER 0.71 MG/L FEU (0-0.50)
[2017-12-13 02:44] LABS: MAGNESIUM 1.9 MG/DL (1.5-2.4); PHOSPHORUS 2.8 MG/DL (2.3-4.5)
[2017-12-13] MEDS: docusate sod 100mg capsule PO SCH ×2 (07:58→21:19)
[2017-12-13] MEDS: pantoprazole 40mg Tablet.DR PO SCH (07:58)
[2017-12-13] MEDS: aspirin 81mg tablet.DR PO SCH (07:58)
[2017-12-13] MEDS: lisinopril 20mg tablet PO SCH ×2 (07:59→21:22)
[2017-12-13] MEDS: amLODIPine 5mg tablet PO SCH (07:59)
[2017-12-13] MEDS: nitroGLYCERIN 0.2mg/hour patch TD SCH (08:00)
[2017-12-13] MEDS: atenolol 25mg tablet PO SCH (08:45)
[2017-12-13] MEDS ORDERED: morphine 2 MG/ML inj. syringe IV ONE (16:45)
[2017-12-13] MEDS ORDERED: fentaNYL/PF 50MCG/1 ML 2ML syringe ONE (16:47)
[2017-12-13] MEDS ORDERED: midazolam 2 mg/2 ml injection ONE (16:47)
[2017-12-13] MEDS ORDERED: LIDOcaine 1% 30ml preserv. free vial ONE (16:47)
[2017-12-13] MEDS ORDERED: iohexol 350MG/ML 100ml bottle IV ONE (16:47)
[2017-12-13] MEDS: nitroGLYCERIN 0.4mg SUBLingual tab SL PRN ×2 (16:51→17:11)
[2017-12-13] MEDS ORDERED: iohexol 350 MG/ML 50ML vial IV ONE ×4 (17:53→18:26)
[2017-12-13] MEDS ORDERED: heparin 1,000unit/ml 10ml vial 10 ML ONE (17:56)
[2017-12-13] MEDS ORDERED: ticagrelor 90mg tablet ONE (18:33)
[2017-12-13] MEDS ORDERED: temazepam 15mg capsule PO PRN (21:00)
[2017-12-13] MEDS ORDERED: atorvastatin 20mg tablet PO SCH (21:00)
[2017-12-13] MEDS ORDERED: Melatonin 3mg tablet PO SCH (21:00)
[2017-12-14 02:00] VITALS: BP 118/53
[2017-12-14 03:05] VITALS: BP 137/75
[2017-12-14 05:48] LABS: BASOPHILS % (AUTO) 0.3 % (0-1); EOSINOPHILS # (AUTO) 0.1 X10'3 (0-0.9); EOSINOPHILS % (AUTO) 2.4 % (0-6); HEMATOCRIT 35.9 % (42.0-52.0); HEMOGLOBIN 12.1 g/dl (14.0-17.9); LYMPHOCYTES # (AUTO) 0.6 X10'3 (1.1-4.8); MEAN CORPUSCULAR HEMOGLOBIN 31.6 PG (27.0-31.0); MEAN CORPUSCULAR HGB CONC 33.6 % (33.0-36.5); MEAN CORPUSCULAR VOLUME 93.9 FL (78-98); MEAN PLATELET VOLUME 8.7 FL (7.4-10.4); MONOCYTES # (AUTO) 0.6 X10'3 (0-0.9); MONOCYTES % (AUTO) 12.2 % (2-12); NEUTROPHILS # (AUTO) 3.5 X10'3 (1.8-7.7); NEUTROPHILS % (AUTO) 72.1 % (42-75); PLATELET COUNT 173 X10'3 (140-440); RED BLOOD COUNT 3.82 X10'6 (4.70-6.10); RED CELL DISTRIBUTION WIDTH 13.6 % (11.5-14.5); WHITE BLOOD COUNT 4.9 X10'3 (4.5-11.0)
[2017-12-14 06:00] LABS: ALANINE AMINOTRANSFERASE 21 U/L (12-78); ALBUMIN 2.9 G/DL (3.4-5.0); ALKALINE PHOSPHATASE 42 IU/L (46-116); ANION GAP 7 (8-16); ASPARTATE AMINO TRANSFERASE 17 U/L (10-37); BILIRUBIN,TOTAL 0.3 MG/DL (0.1-1.0); BLOOD UREA NITROGEN 22 MG/DL (7-18); BUN/CREATININE RATIO 24.4 (5.4-32.0); CALCIUM 9.2 MG/DL (8.5-10.1); CHLORIDE 105 MMOL/L (99-107); CHOL/HDL RATIO 2.2 (0.00-4.99); CHOLESTEROL 113 MG/DL (0-200); GLUCOSE 118 MG/DL (70-104); HDL CHOLESTEROL 51 MG/DL (35-60); LDL CHOLESTEROL 51 MG/DL (50-100); POTASSIUM 3.7 MMOL/L (3.5-5.1); SODIUM 140 MMOL/L (135-145); TOTAL PROTEIN 5.7 G/DL (6.4-8.2); TRIGLYCERIDES 56 MG/DL (20-135); eGFR 82 ML/MIN
[2017-12-14 06:30] VITALS: BP 142/66
[2017-12-14 06:33] VITALS: BP 142/66
[2017-12-14] MEDS: docusate sod 100mg capsule PO SCH (07:46)
[2017-12-14] MEDS: pantoprazole 40mg Tablet.DR PO SCH (07:46)
[2017-12-14] MEDS: aspirin 81mg tablet.DR PO SCH (07:46)
[2017-12-14 07:47] VITALS: BP_SYST 147
[2017-12-14] MEDS: amLODIPine 5mg tablet PO SCH (07:47)
[2017-12-14] MEDS: lisinopril 20mg tablet PO SCH (07:47)
[2017-12-14] MEDS: atenolol 25mg tablet PO SCH (07:47)
[2017-12-14] MEDS: nitroGLYCERIN 0.2mg/hour patch TD SCH (07:48)
[2017-12-14] MEDS ORDERED: ticagrelor 90mg tablet PO SCH (08:00)
[2017-12-14] MEDS ORDERED: TICA90TA PO (10:14)
[2017-12-14] MEDS ORDERED: NITR0.4T51 SL (10:14)
[2017-12-14] MEDS ORDERED: NIT5P TD (10:14)
== END 2017-12-14 12:05 | disposition home or self-care (01) | DRG 246 ==
LOC: ER 00:57 → ED HOLD 02:06 → PCU 3S 03:27
PROVIDERS: ADMIT Family Medicine; ATTEND Internal Medicine
PROC: 4A023N7 Measurement of Cardiac Sampling and Pressure, Left Heart, Percutaneous Approach (ICD-10-PCS; principal; 2017-12-13)
PROC: 027034Z Dilation of Coronary Artery, One Artery with Drug-eluting Intraluminal Device, Percutaneous Approach (ICD-10-PCS; 2017-12-13)
PROC: B2111ZZ Fluoroscopy of Multiple Coronary Arteries using Low Osmolar Contrast (ICD-10-PCS; 2017-12-13)
PROC: B2151ZZ Fluoroscopy of Left Heart using Low Osmolar Contrast (ICD-10-PCS; 2017-12-13)
PROC: B2181ZZ Fluoroscopy of Left Internal Mammary Bypass Graft using Low Osmolar Contrast (ICD-10-PCS; 2017-12-13)
DX: I21.4 Non-ST elevation (NSTEMI) myocardial infarction (principal); I50.31 Acute diastolic (congestive) heart failure; K55.1 Chronic vascular disorders of intestine; E11.9 Type 2 diabetes mellitus without complications; E78.5 Hyperlipidemia, unspecified; I11.0 Hypertensive heart disease with heart failure; I25.10 Atherosclerotic heart disease of native coronary artery without angina pectoris; I25.2 Old myocardial infarction; Z90.49 Acquired absence of other specified parts of digestive tract; Z95.1 Presence of aortocoronary bypass graft; Z88.0 Allergy status to penicillin; Z79.82 Long term (current) use of aspirin; Z85.828 Personal history of other malignant neoplasm of skin; Z87.891 Personal history of nicotine dependence
CPT/HCPCS: 93459; 96374; 99285; C9600; 36415; 71045; 75625; 75710; 80053; 80061; 82948; 83605; 83615; 83690; 83735; 83880; 84100; 84145; 84443; 84484; 85025; 85379; 85610; 85730; 87070; 93005; 99152; 99153; A4620; A6257; C1725; C1769; C1874; G0378; J1644; J2250; J2270; J3010; J3490; J7030; Q9967

== ENCOUNTER 2018-04-11 08:46 | Day surgery (SDC) | payer MEDICARE ==
[2018-04-10 16:17] LABS: BASOPHILS % (AUTO) 0.7 % (0-1); EOSINOPHILS # (AUTO) 0.1 X10'3 (0-0.9); EOSINOPHILS % (AUTO) 1.1 % (0-6); LYMPHOCYTES # (AUTO) 1.1 X10'3 (1.1-4.8); LYMPHOCYTES % (AUTO) 19.2 % (21-51); MEAN CORPUSCULAR HEMOGLOBIN 31.1 PG (27.0-31.0); MEAN CORPUSCULAR HGB CONC 34.3 g/dL (33.0-36.5); MEAN CORPUSCULAR VOLUME 90.6 FL (78-98); MEAN PLATELET VOLUME 7.9 FL (7.4-10.4); MONOCYTES # (AUTO) 0.5 X10'3 (0-0.9); MONOCYTES % (AUTO) 8.8 % (2-12); NEUTROPHILS # (AUTO) 3.9 X10'3 (1.8-7.7); NEUTROPHILS % (AUTO) 70.2 % (42-75); PRE OP HEMATOCRIT 41.6 % (42.0-52.0); PRE OP HEMOGLOBIN 14.2 g/dL (14.0-17.9); PRE OP PLATELET COUNT 208 X10'3 (140-440); RED BLOOD COUNT 4.59 X10'6 (4.70-6.10); RED CELL DISTRIBUTION WIDTH 14.7 % (11.5-14.5)
[2018-04-10 16:18] LABS: CLARITY,URINE CLEAR (Clear); COLOR,URINE YELLOW (Yellow); GLUCOSE, URINE NEGATIVE (Neg); KETONES,URINE NEGATIVE (Neg); LEUKOCYTE ESTERASE ,URINE NEGATIVE (Neg); NITRITES, URINE NEGATIVE (Neg); OCCULT BLOOD,URINE NEGATIVE (Neg); PROTEIN,URINE NEGATIVE (Neg); UROBILINOGEN,URINE 0.2 E.U/dL (0.2-1.0)
[2018-04-10 16:19] LABS: UA COLLECTION TYPE CLN CATCH MIDSTREAM
[2018-04-10 16:26] LABS: HEMOGLOBIN A1C 6.1 % (4.5-6.2)
[2018-04-10 16:31] LABS: ALBUMIN 3.8 G/DL (3.4-5.0); ALBUMIN/GLOBULIN RATIO 1.3 (1.1-1.5); ALKALINE PHOSPHATASE 58 IU/L (46-116); BLOOD UREA NITROGEN 27 MG/DL (7-18); BUN/CREATININE RATIO 29.3 (5.4-32.0); CALCIUM 9.1 MG/DL (8.5-10.1); CHLORIDE 99 MMOL/L (99-107); CREATININE 0.92 MG/DL (0.60-1.10); PRE OP ALT 44 U/L (30-65); PRE OP ANION GAP 8 (8-16); PRE OP AST 25 U/L (10-37); PRE OP BILIRUB, TOTAL 0.3 MG/DL (0.0-1.0); PRE OP GLUCOSE 188 MG/DL (70-104); PRE OP POTASSIUM 3.4 MMOL/L (3.4-5.1); PRE OP SODIUM 138 MMOL/L (135-145); TOTAL CARBON DIOXIDE 30.6 MMOL/L (24-32); TOTAL PROTEIN 6.8 G/DL (6.4-8.2); eGFR 80 ML/MIN
[2018-04-10 16:35] LABS: PRE OP PROTIME 10.3 SECONDS (9.0-12.0)
[~2018-04-11] VITALS: Ht 160 cm; Wt 70.9 kg
[2018-04-11] VITALS (13 sets, daily range): BP systolic 135–170; BP diastolic 65–83
[~2018-04-11 08:46] MED LIST changes: +CLINDAmcin 900mg/NS 50ml IVPB 50 ML IV ONE; +DOCUMENT DATE & TIME OF BETA-BLOCKER PO ONE; -FLAX100015 PO; +NITR0.4T51 SL; +THIO300C PO; +TICA90TA PO; -TUMERIC PO; +famotidine 20mg tablet PO ONE; +ringers solution, lacted 1,000 ML IV SCH
[2018-04-11] MEDS ORDERED: BUPIVAcaine/PF 2.5mg/ml (0.25%) 10ml vial ONE (09:28)
[2018-04-11] MEDS ORDERED: sevoflurane 250ml liquid IH ONE (10:11)
[2018-04-11] MEDS ORDERED: fentaNYL/PF 50MCG/1 ML 2ML syringe ONE (10:16)
[2018-04-11] MEDS ORDERED: gentamicin 40 MG/1 ML inj ONE (10:21)
--- NOTE | 2018-04-11 11:17 | NUR ---
Received from OR via , accompanied by Anesthesiologist DR. VANEGAS and report given by Anesthesiolgist. PATIENT A&O X4, LUNG SOUNDS CLEAR, 02 SAT 100% 10L MASK, ABD SOFT TO TOUCH LAP SITES X2 GENERATION MECHANIC HELPER, SCDS NOTED, 20 GAUGE IV WITH FLUIDS INFUSING. VSS CHARTED, WILL CONTIUNE TO MONITOR.
[2018-04-11] MEDS ORDERED: ondansetron/PF 4mg/2ml inj ONE (11:29)
[2018-04-11] MEDS ORDERED: LIDOcaine 2% (20mg/ml) 5ml vial ONE (11:29)
[2018-04-11] MEDS ORDERED: glycopyrrolate 0.2mg/ml inj ONE (11:29)
[2018-04-11] MEDS ORDERED: rocuronium 10mg/ml inj IV ONE (11:29)
[2018-04-11] MEDS ORDERED: neostigmine methylsulfate 1 MG/ML 10ml vial ONE (11:29)
[2018-04-11] MEDS ORDERED: propofol inj 20 ML IV ONE (11:29)
[2018-04-11] MEDS ORDERED: morphine 2 MG/ML inj. syringe IV ONE (11:50)
[2018-04-11] MEDS ORDERED: morphine 4 MG/ML inj SYRINge IV ONE (12:00)
[2018-04-11] MEDS ORDERED: morphine 10mg/ml inj. IV ONE (12:00)
[2018-04-11] MEDS ORDERED: HYDROcodone/acetaminophen 10/325mg tab PO ONE (12:35)
[2018-04-11] MEDS ORDERED: ringers solution, lacted 1,000 ML IV SCH (12:38)
[2018-04-11] MEDS ORDERED: HYDROmorphone inj. 0.5 MG/0.5 ML DISP.SYRIN IV PRN (12:40)
[2018-04-11] MEDS ORDERED: morphine 4 MG/ML inj SYRINge IV PRN (12:40)
[2018-04-11] MEDS ORDERED: ondansetron/PF 4mg/2ml inj IV PRN (12:40)
[2018-04-11] MEDS ORDERED: morphine 10mg/ml inj. IV PRN (12:49)
--- NOTE | 2018-04-11 13:30 | NUR ---
PATIENT ATTEMPTED TO VOID, HAS URGENCY BUT UNABLE TO EMPTY BLADDER, BLADDER SCAN DONE 491 NOTED ON SCAN. ALMONTE CATH PLACED ORDERED.
--- NOTE | 2018-04-11 13:45 | NUR ---
16 UZBEK F/C PLACED, 400CC OF YELLOW DRAINAGE RETURNED. PATIENT TOLERATED WELL.
--- NOTE | 2018-04-11 15:45 | NUR ---
PATIENT DC INSTRUCTIONS GIVEN, PATIENT VERBALIZED UNDERSTANDING. PIV DC'D. CATH TIP INTACT. PATIENT TO PERSONAL VEHICLE WITH ALL PERSONAL BELONGINGS ACCOMPANIED BY STAFF AND FAMILY.
== END 2018-04-11 15:47 | disposition home or self-care (01) ==
LOC: PAS 08:46
PROVIDERS: ATTEND Surgery
DX: K40.90 Unilateral inguinal hernia, without obstruction or gangrene, not specified as recurrent (principal); F17.210 Nicotine dependence, cigarettes, uncomplicated; E11.9 Type 2 diabetes mellitus without complications; I10 Essential (primary) hypertension; Z79.82 Long term (current) use of aspirin; Z88.0 Allergy status to penicillin; Z88.8 Allergy status to other drugs, medicaments and biological substances; Z72.89 Other problems related to lifestyle; Z98.890 Other specified postprocedural states; Z95.1 Presence of aortocoronary bypass graft; Z79.84 Long term (current) use of oral hypoglycemic drugs
CPT/HCPCS: 36415; 49650; 80053; 81003; 82948; 83036; 85025; 85610; 85730; 93005; C1781; J1580; J2001; J2270; J2405; J2704; J2710; J3010; J3490; J7120; A4315

== ENCOUNTER 2018-10-22 10:37 | Outpatient (CLI) | payer MEDICARE ==
[~2018-10-22 10:37] MED LIST changes: -CLINDAmcin 900mg/NS 50ml IVPB 50 ML IV ONE; -DOCUMENT DATE & TIME OF BETA-BLOCKER PO ONE; -famotidine 20mg tablet PO ONE; -ringers solution, lacted 1,000 ML IV SCH
== END 2018-10-22 23:59 | disposition home or self-care (01) ==
LOC: RAD 10:37
PROVIDERS: ATTEND Family Medicine
DX: M48.07 Spinal stenosis, lumbosacral region (principal); M43.16 Spondylolisthesis, lumbar region; M51.26 Other intervertebral disc displacement, lumbar region; M41.86 Other forms of scoliosis, lumbar region; M84.48XA Pathological fracture, other site, initial encounter for fracture; M89.38 Hypertrophy of bone, other site; M71.38 Other bursal cyst, other site; I10 Essential (primary) hypertension; E11.9 Type 2 diabetes mellitus without complications; Z87.891 Personal history of nicotine dependence
CPT/HCPCS: 72148

== ENCOUNTER 2019-04-03 09:10 | Inpatient (IN) | payer MEDICARE ==
[2019-04-01 16:35] LABS: BASOPHILS % (AUTO) 0.4 % (0-1); EOSINOPHILS # (AUTO) 0.1 X10'3 (0-0.9); EOSINOPHILS % (AUTO) 1.7 % (0-6); LYMPHOCYTES # (AUTO) 0.9 X10'3 (1.1-4.8); LYMPHOCYTES % (AUTO) 14.4 % (21-51); MEAN CORPUSCULAR HEMOGLOBIN 31.5 PG (27.0-31.0); MEAN CORPUSCULAR HGB CONC 35.1 g/dL (33.0-36.5); MEAN CORPUSCULAR VOLUME 89.8 FL (78-98); MEAN PLATELET VOLUME 7.6 FL (7.4-10.4); MONOCYTES # (AUTO) 0.6 X10'3 (0-0.9); MONOCYTES % (AUTO) 9.1 % (2-12); NEUTROPHILS # (AUTO) 4.6 X10'3 (1.8-7.7); NEUTROPHILS % (AUTO) 74.4 % (42-75); PRE OP PLATELET COUNT 231 X10'3 (140-440); RED BLOOD COUNT 4.45 X10'6 (4.70-6.10); RED CELL DISTRIBUTION WIDTH 13.2 % (11.5-14.5)
[2019-04-01 16:37] LABS: HEMOGLOBIN A1C 6.1 % (4.5-6.2)
[2019-04-01 16:43] LABS: CLARITY,URINE CLEAR (Clear); COLOR,URINE YELLOW (Yellow); GLUCOSE, URINE NEGATIVE (Neg); KETONES,URINE NEGATIVE (Neg); LEUKOCYTE ESTERASE ,URINE NEGATIVE (Neg); NITRITES, URINE NEGATIVE (Neg); OCCULT BLOOD,URINE NEGATIVE (Neg); PH,URINE 7.5 (4.8-8.0); PROTEIN,URINE NEGATIVE (Neg); UROBILINOGEN,URINE 0.2 E.U/dL (0.2-1.0)
[2019-04-01 16:45] LABS: UA COLLECTION TYPE CLN CATCH MIDSTREAM
[2019-04-01 16:47] LABS: ALBUMIN 3.8 G/DL (3.4-5.0); ALBUMIN/GLOBULIN RATIO 1.2 (1.1-1.5); ALKALINE PHOSPHATASE 70 IU/L (46-116); BLOOD UREA NITROGEN 24 MG/DL (7-18); BUN/CREATININE RATIO 26.1 (5.4-32.0); CALCIUM 9.1 MG/DL (8.5-10.1); CHLORIDE 101 MMOL/L (99-107); CREATININE 0.92 MG/DL (0.60-1.10); PRE OP ALT 42 U/L (30-65); PRE OP ANION GAP 8 (8-16); PRE OP AST 31 U/L (10-37); PRE OP BILIRUB, TOTAL 0.4 MG/DL (0.0-1.0); PRE OP GLUCOSE 141 MG/DL (70-104); PRE OP POTASSIUM 3.5 MMOL/L (3.4-5.1); PRE OP SODIUM 141 MMOL/L (135-145); TOTAL CARBON DIOXIDE 32.5 MMOL/L (24-32); eGFR 79 ML/MIN
[2019-04-01 17:18] LABS: PRE OP PROTIME 10.7 SECONDS (9.0-12.0)
[~2019-04-03] VITALS: Ht 162.6 cm; Wt 65.8 kg
[2019-04-03] VITALS (14 sets, daily range): BP systolic 116–189; BP diastolic 57–86
[~2019-04-03 09:10] MED LIST changes: +APIX5TAB3 PO; -ASPI-611 PO; +LACT1CAP75 PO; -MAGN400C PO; -NITR0.4T51 SL; -TICA90TA PO; +[UNRECOGNIZED DRUG - OTHER] PO; +clindamycin-Cleocin 900mg/D5W 50 ML IV ONE; +famotidine 20mg tablet PO ONE
[2019-04-03] MEDS ORDERED: phenylephrine inj 50 MG in normal saline 250ml IV soln 250 ML IV PRN (09:37)
[2019-04-03] MEDS ORDERED: nitroPRUSSIDE in NS 100 ML IV PRN (09:37)
[2019-04-03] MEDS: ringers solution, lacted 1,000 ML IV SCH ×2 (10:05→19:22)
[2019-04-03] MEDS ORDERED: ringers solution, lacted 1,000 ML IV SCH (10:53)
[2019-04-03] MEDS ORDERED: labetalol 20mg/4ml (5mg/ml) syringe IV PRN (10:55)
[2019-04-03] MEDS ORDERED: PHENYLephrine 10mg/ml 5ml injection IV ONE (10:55)
[2019-04-03] MEDS ORDERED: ondansetron/PF 4mg/2ml inj IV PRN ×2 (10:55→15:45)
[2019-04-03] MEDS ORDERED: morphine 2 MG/ML inj. syringe IV PRN (10:55)
[2019-04-03] MEDS ORDERED: phenylephrine inj 50 MG in normal saline 250ml IV soln 250 ML IV SCH (10:55)
[2019-04-03] MEDS ORDERED: fentaNYL/PF 50MCG/1 ML 2ML syringe IV PRN (10:55)
[2019-04-03] MEDS ORDERED: hydrALAZINE 20mg/ml inj. IV PRN (10:55)
[2019-04-03] MEDS ORDERED: nitroPRUSSIDE sod inj. 50 MG in dextrose 5%-water 250 ML IV SCH (10:55)
[2019-04-03] MEDS ORDERED: heparin 10,000 units/1 ML INJ ONE (14:10)
[2019-04-03] MEDS ORDERED: LIDOcaine 1% 30ml preserv. free vial ONE (14:11)
[2019-04-03] MEDS ORDERED: naloxone 0.4 mg/ml inj ONE (14:15)
[2019-04-03] MEDS ORDERED: glycopyrrolate 0.2mg/ml inj ONE (14:15)
[2019-04-03] MEDS ORDERED: neostigmine methylsulfate 1 MG/ML 10ml vial ONE (14:15)
[2019-04-03] MEDS ORDERED: sevoflurane 250ml liquid IH ONE (14:15)
[2019-04-03] MEDS ORDERED: midazolam 2 mg/2 ml injection ONE (14:22)
[2019-04-03] MEDS ORDERED: fentaNYL/PF 50MCG/1 ML 2ML syringe ONE (14:22)
[2019-04-03] MEDS ORDERED: propofol inj 20 ML IV ONE (14:22)
[2019-04-03] MEDS ORDERED: rocuronium 10mg/ml inj IV ONE (14:22)
[2019-04-03] MEDS ORDERED: ondansetron/PF 4mg/2ml inj ONE (14:41)
[2019-04-03] MEDS: morphine 4 MG/ML inj SYRINge IV PRN ×2 (16:05→16:36)
[2019-04-03] MEDS: fentaNYL/PF 50MCG/1 ML 2ML syringe IV PRN ×2 (16:16→16:26)
--- NOTE | 2019-04-03 16:45 | NUR ---
PATIENT A&OX4, C/O PAIN BUT STATES IT HAS IMPROVED SEE EMAR, V/S WNL, NEUROVASCULAR CHECKS INTACT. 20G LUE, ART LINE RUE, SCD ON, DRESSING TO RIGHT NECK CDI WITH EZEQUIEL WITH MINIMAL OUTPUT. NO S/S OF ANY NEURO DEFICITS AT THIS TIME. STRENGTH EQUAL TONGUE MIDLINE SPEECH CLEAR PUPILS PEARRLA. GTT TITRATED TO MAINTAIN SBP IN THE 140 RANGE. . TAKEN TO 2041 WITH ALL BELONGINGS AND HOOKED UP TO MONITORS IN ROOM AND REPORT GIVEN TO AUTO BODY MECHANIC WHO HAS TAKEN OVER PATIENT CARE
--- NOTE | 2019-04-03 16:45 | NUR ---
Received from OR via BED , accompanied by Anesthesiologist DR PEREZ and report given by Anesthesiolgist. PATIENT WAKING UP, C/O PAIN SEE EMAR, V/S WNL, NEUROVASCULAR CHECKS INTACT. 20G LUE, ART LINE RUE, SCD ON, DRESSING TO RIGHT NECK CDI WITH EZEQUIEL WITH MINIMAL OUTPUT. NO S/S OF ANY NEURO DEFICITS AT THIS TIME. STRENGTH EQUAL TONGUE MIDLINE SPEECH CLEAR PUPILS PEARRLA
[2019-04-03] MEDS: HYDROcodone/acetaminophen 5mg/325mg tablet PO PRN ×2 (17:29→21:19)
[2019-04-04] VITALS (16 sets, daily range): BP systolic 108–164; BP diastolic 52–74
[2019-04-04 02:58] LABS: BASOPHILS % (AUTO) 0.2 % (0-1); EOSINOPHILS % (AUTO) 0 % (0-6); HEMOGLOBIN 11.8 g/dl (14.0-17.9); LYMPHOCYTES # (AUTO) 0.5 X10'3 (1.1-4.8); LYMPHOCYTES % (AUTO) 5.9 % (21-51); MEAN CORPUSCULAR HEMOGLOBIN 31.8 PG (27.0-31.0); MEAN CORPUSCULAR HGB CONC 35.8 g/dL (33.0-36.5); MEAN CORPUSCULAR VOLUME 88.7 FL (78-98); MEAN PLATELET VOLUME 7.5 FL (7.4-10.4); MONOCYTES # (AUTO) 0.5 X10'3 (0-0.9); MONOCYTES % (AUTO) 5.5 % (2-12); NEUTROPHILS # (AUTO) 8.2 X10'3 (1.8-7.7); NEUTROPHILS % (AUTO) 88.4 % (42-75); PLATELET COUNT 204 X10'3 (140-440); RED BLOOD COUNT 3.71 X10'6 (4.70-6.10); WHITE BLOOD COUNT 9.3 X10'3 (4.5-11.0)
[2019-04-04 03:20] LABS: ALBUMIN 2.9 G/DL (3.4-5.0); ANION GAP 7 (8-16); BLOOD UREA NITROGEN 17 MG/DL (7-18); BUN/CREATININE RATIO 22.1 (5.4-32.0); CALCIUM 8.2 MG/DL (8.5-10.1); CHLORIDE 99 MMOL/L (99-107); CREATININE 0.77 MG/DL (0.60-1.10); GLUCOSE 147 MG/DL (70-104); MAGNESIUM 1.5 MG/DL (1.5-2.4); SODIUM 133 MMOL/L (135-145); TOTAL CARBON DIOXIDE 26.6 MMOL/L (24-32); eGFR > 90 ML/MIN
[2019-04-04 03:21] LABS: POTASSIUM 4.1 MMOL/L (3.5-5.1)
[2019-04-04] MEDS: HYDROcodone/acetaminophen 5mg/325mg tablet PO PRN ×2 (03:36→11:21)
--- NOTE | 2019-04-04 06:20 | NUR ---
Patient in room ICU 2041. I have received report from Tanya GASTON and had the opportunity to ask questions and assume patient care.
[2019-04-04] MEDS ORDERED: chlorthalidone 25mg tablet PO SCH (11:00)
[2019-04-04] MEDS ORDERED: atenolol 25mg tablet PO SCH (11:00)
--- NOTE | 2019-04-04 11:00 | NUR ---
Called Dr. Ortiz to follow up with patient's plan. Received orders to continue BP meds and he will be around to see him at 1300.
[2019-04-04] MEDS ORDERED: amLODIPine 5mg tablet PO SCH (11:06)
[2019-04-04] MEDS ORDERED: lisinopril 20mg tablet PO SCH ×2 (11:09→20:00)
[2019-04-04] MEDS ORDERED: TRAM50TA2 PO (14:23)
--- NOTE | 2019-04-04 15:20 | NUR ---
Discussed discharge instructions with patient, verbalized understanding, educated patient. Radha Harmon RN removed EZEQUIEL drain from right neck, tolerated well. VSS. IV removed cathlon intact. Eager to go home. Belongings sent with patient. Escorted out at this time via w/c to s/o's private vehicle without event.
== END 2019-04-04 15:41 | disposition home or self-care (01) | DRG 39 ==
LOC: UNDOADMIN 09:10 → PAS IN 09:10 → EDSTATUS 12:15 → PAS IN 15:45 → ICU 2S 19:04 → PAS IN 19:04
PROVIDERS: ADMIT Surgery; ATTEND Surgery
PROC: 03UM0KZ Supplement Right External Carotid Artery with Nonautologous Tissue Substitute, Open Approach (ICD-10-PCS; 2019-04-03)
PROC: 03CM0ZZ Extirpation of Matter from Right External Carotid Artery, Open Approach (ICD-10-PCS; principal; 2019-04-03 14:15)
DX: I65.21 Occlusion and stenosis of right carotid artery (principal); E11.9 Type 2 diabetes mellitus without complications; E78.5 Hyperlipidemia, unspecified; I10 Essential (primary) hypertension; I49.5 Sick sinus syndrome; M54.5 Low back pain; I25.10 Atherosclerotic heart disease of native coronary artery without angina pectoris; I35.0 Nonrheumatic aortic (valve) stenosis; I48.91 Unspecified atrial fibrillation; Z95.5 Presence of coronary angioplasty implant and graft; Z95.0 Presence of cardiac pacemaker; Z88.0 Allergy status to penicillin
CPT/HCPCS: 36415; 71046; 80048; 80053; 81003; 82948; 83036; 83735; 85025; 85610; 85730; 86885; 86900; 86901; 87081; 95813; 95816; A4618; A6258; A7000; C1768; G0378; J1644; J2001; J2250; J2270; J2310; J2370; J2405; J2704; J2710; J3010; J3490; J7040; J7120

== ENCOUNTER 2024-03-08 12:19 | Outpatient (CLI) | payer MEDICARE ==
[~2024-03-08 12:19] MED LIST changes: +LISI40TA13 PO; -LISI40TA4 PO; +METF-1203 PO; -METF-950 PO; -clindamycin-Cleocin 900mg/D5W 50 ML IV ONE; -famotidine 20mg tablet PO ONE
== END 2024-03-08 23:59 | disposition home or self-care (01) ==
LOC: MRI 12:19
PROVIDERS: ATTEND Family Medicine
DX: M51.27 Other intervertebral disc displacement, lumbosacral region (principal); M48.07 Spinal stenosis, lumbosacral region; M48.04 Spinal stenosis, thoracic region; M71.38 Other bursal cyst, other site; M43.16 Spondylolisthesis, lumbar region
CPT/HCPCS: 72148